=== PATIENT | female | born 1975 | race African-American/Black ===

== ENCOUNTER 2019-08-01 00:21 | Inpatient (IN) ==
--- NOTE | 2019-08-01 00:57 | EKG Report ---
Test Performed on : 08/01/2019 00:43:14 AM Test Reason : sob Blood Pressure : / mmHG Vent. Rate : 114 BPM Atrial Rate : 114 BPM P-R Int : 144 ms QRS Dur : 080 ms QT Int : 330 ms P-R-T Axes : 041 049 015 degrees QTc Int : 454 ms Sinus tachycardia. with frequent premature ventricular complexes. Possible Left atrial enlargement Borderline ECG No previous ECGs available Unconfirmed Result
[2019-08-01 01:12] LABS: BASO# 0.02 X1000 (0.0-0.2); BASO% 0.2 % (0.0-0.8); EOS# 0.18 X1000 (0.0-0.7); EOS% 1.6 % (0.0-10.0); HEMOGLOBIN 11.9 g/dL (12.0-16.0); IMM GRAN# 0.03 X1000 (0.0-0.04); IMM GRAN% 0.3 % (0.0-0.5); LYMPH# 3.36 X1000 (1.2-3.4); LYMPH% 29.2 % (20.5-51.1); MCH 29.8 PG (27-31); MCHC 32.2 g/dL (33-37); MCV 92.5 FL (81-99); MONO# 0.64 X1000 (0.11-0.59); MONO% 5.6 % (1.7-9.3); MPV 12.3 FL (7.4-10.4); NEUT# 7.29 X1000 (1.4-6.5); NEUT% 63.1 % (42.2-75.2); PLT 336 X1000 (130-400); RDW 13.3 % (11.5-14.5); WBC 11.52 X1000 (4.8-10.8)
[2019-08-01 01:19] LABS: AGAP 15; ALBUMIN 4.1 g/dL (3.5-5.0); ALKALINE PHOSPHATASE 72 U/L (32-104); BUN 7 mg/dL (8-22); CALCIUM 9.3 mg/dL (8.8-10.2); CHLORIDE 102 mmol/L (98-107); COSMO 276; CREATININE 0.6 mg/dL (0.5-0.9); ESTIMATED GFR > 60; GLUCOSE 109 mg/dL (70-104); GOT 14 U/L (10-30); GPT 10 U/L (10-36); POTASSIUM 4.1 mmol/L (3.5-5.1); SODIUM 139 mmol/L (136-145); TCO2 22 mmol/L (25-35); TOTAL PROTEIN 6.7 g/dL (6.3-8.3)
[2019-08-01 01:19] LABS: INFLUENZA A NEGATIVE (NEGATIVE); INFLUENZA B NEGATIVE (NEGATIVE)
[2019-08-01 01:41] LABS: URINE SOURCE CLEAN CATCH
[2019-08-01] MEDS ORDERED: LASIX IV ONE (01:42)
[2019-08-01 01:43] LABS: UR EPITHELIAL CELLS <10 /HPF (<10); URINE BACTERIA NEGATIVE /HPF; URINE WBC <10 /HPF (<10)
[2019-08-01 01:53] LABS: UR AMPHETAMINES QUAL NONE DETECTED (NONE DETECT); UR BARBITUATES QUAL NONE DETECTED (NONE DETECT); UR BENZODIAZEPIN QUAL NONE DETECTED (NONE DETECT); UR CANNABINOIDS QUAL NONE DETECTED (NONE DETECT); UR COCAINE QUAL NONE DETECTED (NONE DETECT); UR METHADONE QUAL NONE DETECTED (NONE DETECT); UR METHAMPHETAMINE QUAL NONE DETECTED (NONE DETECT); UR OPIATES QUAL NONE DETECTED (NONE DETECT); UR OXYCODONE QUAL NONE DETECTED (NONE DETECT); UR PCP QUAL NONE DETECTED (NONE DETECT); UR PROPOXYPHENE QUAL NONE DETECTED (NONE DETECT); UR TCA QUAL NONE DETECTED (NONE DETECT)
[2019-08-01 02:10] LABS: BILIRUBIN URINE NEGATIVE (NEGATIVE); BLOOD URINE MODERATE (NEGATIVE); GLUCOSE URINE NEGATIVE (NEGATIVE); KETONE URINE NEGATIVE (NEGATIVE); SP GRAVITY URINE 1.005; TURBIDITY URINE CLEAR (CLEAR)
[2019-08-01 02:11] LABS: LEUKOCYTES URINE NEGATIVE (NEGATIVE); NITRITE URINE NEGATIVE (NEGATIVE); PROTEIN URINE 30 mg/dL (NEGATIVE); UROBILINOGEN URINE NORMAL (NORMAL)
[2019-08-01 02:12] LABS: COLOR YELLOW
[2019-08-01] MEDS ORDERED: TYLENOL PO ONE ×2 (02:52→11:45)
[2019-08-01] MEDS ORDERED: NITROGLYCERIN TOP ONE (02:54)
[2019-08-01] MEDS ORDERED: NITROGLYCERIN ONE (02:58)
[2019-08-01] MEDS ORDERED: TYLENOL ONE (02:58)
--- NOTE | 2019-08-01 08:01 | Diag Imaging Result Doc PS360 ---
EXAM: CT ANGIOGRAM PULMONARY ARTERIES - 08/01/2019 HISTORY: sob, tachy, elevated D-dimer TECHNIQUE: CT angiogram pulmonary arteries with intravenous contrast. Axial, coronal, and 3-D MIP images are obtained. COMPARISON: None. FINDINGS: There are no filling defects identified in the pulmonary arteries. There is no indication of aortic dissection. There are patchy bilateral infiltrates, most prominent at the perihilar and suprahilar regions. There are small bilateral pleural effusions. There is no evidence of pneumothorax. There are mildly prominent mediastinal lymph nodes which are likely reactive. IMPRESSION: No evidence of pulmonary embolism. Patchy bilateral infiltrates, most prominent at the perihilar and suprahilar regions. Small bilateral pleural effusions. These may relate to infection/inflammation or pulmonary edema. The on-call radiologist provided preliminary results at 2:59 AM on 08/01/2019. Electronically signed by Nicho Buitrago 08/01/2019 7:59 AM
--- NOTE | 2019-08-01 08:03 | Diag Imaging Result Doc PS360 ---
EXAM: CHEST-2 VIEWS - 08/01/2019 HISTORY: SOB TECHNIQUE: Chest two views COMPARISON: None. FINDINGS: Heart size appears mildly enlarged. There are bilateral perihilar infiltrates. There is mild thickening of fissures which may relate to small pleural effusions. There is no evidence of pneumothorax. IMPRESSION: Findings which may relate to mild pulmonary edema/congestive heart failure or to perihilar pneumonia. Electronically signed by NichoDatacticsxena 08/01/2019 8:00 AM
[2019-08-01] MEDS ORDERED: NITROGLYCERIN TOP SCH (09:00)
[2019-08-01] MEDS ORDERED: TYLENOL PO PRN (13:01)
[2019-08-01] MEDS ORDERED: ZOFRAN IV PRN (13:01)
[2019-08-01] MEDS: ZITHROMAX PO SCH (13:23)
[2019-08-01] MEDS: ZOSYN 3.375 GM in NS 50 ML IV SCH ×2 (13:23→20:42)
[2019-08-01] MEDS ORDERED: LASIX IV SCH (14:00)
[2019-08-01] MEDS: TRANDATE PO SCH (20:42)
--- NOTE | 2019-08-01 21:14 | ECHO REPORT ---
ORDER DATE: 08/01/2019 INDICATION: Dyspnea, CHF. M-MODE MEASUREMENTS: Left ventricle end diastole: 4.8. Left ventricle end systole: 3.9. Posterior wall: 1.2. Interventricular septum: 1.2. Left atrium: 4.2. Aortic diameter: 3.1. SUMMARY OF 2-DIMENSIONAL IMAGIN. The study is somewhat difficult. The left ventricular chamber appears to be enlarged moderately to significantly. 2. Global left ventricular systolic function is mildly impaired, estimated at 50%. There is a mild degree of concentric LVH. 3. The left atrium is significantly enlarged. 4. The aortic valve looks normal. Color flow mapping indicates trace regurgitation. 5. The mitral valve shows a moderately severe degree of regurgitation. 6. Pulse wave Doppler of mitral inflow shows a pseudonormal pattern with a short deceleration time for the E-wave. The E/A ratio is 1.9. 7. Tissue Doppler of septal and lateral mitral annulus averages 9 cm. The E/e' ratio is greater than 15, suggesting elevation of left atrial pressure. 8. The pulmonic valve shows a mild to moderate degree of regurgitation. 9. The tricuspid valve shows a mild to moderate degree of regurgitation. Pulmonary pressure is estimated at 50 to 55 mmHg. 10.The right-sided chambers do not appear to be significantly enlarged. 11.There is no pericardial effusion, no mass, and no thrombus. This study would be consistent with hypertensive heart disease or chronic kidney disease with elevation of left atrial pressure. Clinical correlation recommended. cc: Dick Velasquez MD
--- NOTE | 2019-08-01 22:14 | HISTORY AND PHYSICAL ---
CHIEF COMPLAINT: Shortness of breath. HISTORY OF PRESENT ILLNESS: Patient is a very pleasant 44-year-old female who unfortunately has an extremely significant history of coronary disease in her family, even at an early age. She presented to the hospital with increased work of breathing, increased shortness of breath, cough, congestion. BNP was elevated at 2535. D-dimer was elevated at 0.92. PAST MEDICAL HISTORY: Significant for hypertension. ALLERGIES: No known drug allergies. MEDICATIONS: Labetalol, although she has been on lisinopril in the past. FAMILY HISTORY: Positive for hypertension and coronary artery disease. SOCIAL HISTORY: The patient does not smoke, drink, or use illicit substances. REVIEW OF SYSTEMS: As noted above. Denies any chest pain, palpitations, shortness of breath prior to this event. Denies any headaches, blurred vision, change in vision. Denies any focalized numbness, tingling, weakness in her extremities. Denies dysuria, frequency, constipation, melena, hematochezia. PHYSICAL EXAMINATION: VITAL SIGNS: Reviewed. Temperature 98 degrees, pulse 72, respiratory rate 22, BP 141/83. GENERAL: Patient is pleasant. She is in no current respiratory distress, although she does note that she has had a tremendous improvement since admission. She still is mildly tachypneic. HEENT: Normocephalic. NECK: Supple. CARDIOVASCULAR: Regular rate. CHEST: Decreased breath sounds, but equal bilaterally. ABDOMEN: Soft, nondistended. EXTREMITIES: Moves all extremities. NEUROLOGIC: No changes. ASSESSMENT: 1. Elevated D-dimer. CTA is negative. 2. Elevated BNP. Echocardiogram pending. 3. Hypertension. Will continue medications and will follow. cc: Floyd Cool MD
[2019-08-02] MEDS: ZOSYN 3.375 GM in NS 50 ML IV SCH ×4 (01:51→20:40)
[2019-08-02 06:13] LABS: AGAP 13; ALBUMIN 3.7 g/dL (3.5-5.0); ALKALINE PHOSPHATASE 60 U/L (32-104); BUN 14 mg/dL (8-22); CALCIUM 8.9 mg/dL (8.8-10.2); CHLORIDE 102 mmol/L (98-107); COSMO 277; CREATININE 0.8 mg/dL (0.5-0.9); ESTIMATED GFR > 60; GLUCOSE 112 mg/dL (70-104); GOT 12 U/L (10-30); GPT 9 U/L (10-36); HEMATOCRIT 35.7 % (37.0-47.0); HEMOGLOBIN 11.2 g/dL (12.0-16.0); MCH 29.4 PG (27-31); MCHC 31.4 g/dL (33-37); MCV 93.7 FL (81-99); MPV 12.3 FL (7.4-10.4); POTASSIUM 3.8 mmol/L (3.5-5.1); RBC 3.81 XMIL (4.2-5.4); RDW 13.4 % (11.5-14.5); SODIUM 138 mmol/L (136-145); TCO2 23 mmol/L (25-35); TOTAL PROTEIN 6.7 g/dL (6.3-8.3); WBC 8.95 X1000 (4.8-10.8)
[2019-08-02] MEDS: KLOR-CON PO SCH (08:09)
[2019-08-02] MEDS: LASIX PO SCH (08:09)
[2019-08-02] MEDS: TRANDATE PO SCH ×2 (08:09→20:40)
[2019-08-02] MEDS: ZITHROMAX PO SCH (08:09)
--- NOTE | 2019-08-02 09:17 | Diag Imaging Result Doc PS360 ---
EXAM: CHEST-2 VIEWS HISTORY: hypoxia TECHNIQUE: PA and Lateral chest x-ray COMPARISON: 08/01/2019 FINDINGS: There is cardiomegaly. Bilateral alveolar infiltrates decreased from prior study. There is persistent mild subpleural edema within the fissures. No significant pleural effusion. No pneumothorax. IMPRESSION: Improving bilateral alveolar infiltrates. Persistent subpleural edema within the fissures. Electronically signed by Bia Canales 08/02/2019 9:15 AM
[2019-08-03] MEDS: ZOSYN 3.375 GM in NS 50 ML IV SCH ×3 (03:15→15:54)
[2019-08-03] MEDS: KLOR-CON PO SCH (09:46)
[2019-08-03] MEDS: LASIX PO SCH (09:46)
[2019-08-03] MEDS: TRANDATE PO SCH ×2 (09:46→20:54)
[2019-08-03] MEDS: ZITHROMAX PO SCH (09:47)
--- NOTE | 2019-08-03 10:27 | CARDIOLOGY CONSULTATION ---
DATE: 08/03/2019 HISTORY OF PRESENT ILLNESS: Ms. Hodan Stein is a 44-year-old, lady who has a history of hypertension for the last 15 years. Comes with complaints of increasing shortness of breath and some cough as well. She is followed up for hypertension by her primary physician in the [place] area. In May, beta-blockers were added. She works in a nursing home. Has not been checking her blood pressure regularly. Denies any chest pain suggestive of angina. She has no palpitations. When she came in, she was significantly short of breath. CT scan was done. It revealed no evidence of pulmonary embolism. There was congestion and pleural effusions noted. She was started on Lasix. Symptomatically, she has improved. Elevated white count was also noted. She is on antibiotics. REVIEW OF SYSTEMS: A 14-point review of systems was done. GI System: There is no history of nausea, vomiting, diarrhea. There is no history of hematemesis or melena. Central Nervous System: No focal weakness to suggest a CVA, TIA. PAST MEDICAL HISTORY: Hypertension. FAMILY HISTORY: Coronary artery disease. SOCIAL HISTORY: She does not smoke. There is no history of alcohol abuse. PHYSICAL EXAMINATION: Vital Signs: Blood pressure was 132/71. When she came into the hospital, her blood pressure was 171/110. First and second heart sounds were heard. There was no S3 gallop. Respiratory System: A few scattered inspiratory crepitations. Abdomen was soft, nontender. There was no guarding or rigidity. Bowel sounds were heard. Central Nervous System: Alert, oriented, was moving all 4 extremities. Examination of extremities revealed no pedal edema. HEENT: Atraumatic, normocephalic. Pupils were equal and reacting to light. DIAGNOSTIC DATA: Echocardiogram revealed concentric left ventricular hypertrophy. Ejection fraction of 50%. Next electrocardiogram revealed normal sinus rhythm. Premature ventricular beats were noted. LABORATORY EXAMINATION: Sodium 139, potassium 4.1, BUN 7, creatinine 0.9. ProBNP elevated at 2535. C-reactive protein abnormal at 38.9. Cardiac enzymes negative. CBC: WBC 11.5, hemoglobin 11.9, hematocrit 37, platelet count of 336,000. ASSESSMENT AND PLAN: 1. Ms. Hodan Stein is a 44-year-old, lady with a history of hypertension, is admitted with heart failure. She has diastolic heart failure. On the current medications of labetalol 100 mg by mouth twice a day, her blood pressures are better. In the past, she was on lisinopril/hydrochlorothiazide. We will discontinue the Lasix as she is euvolemic now and also start her back on KELTON inhibitors with diuretics. 2. We will also set her up to undergo a Cardiolite stress test to assess for and rule out ischemia. Thank you for the consult. We will follow hospital course. cc: Bryson Martinez MD
[2019-08-03] MEDS ORDERED: LEXISCAN ONE (12:55)
[2019-08-03] MEDS ORDERED: AMINOPHYLLINE ONE (13:05)
--- NOTE | 2019-08-03 15:07 | Diag Imaging Result Document ---
PROCEDURE NAME: MYOCARDIAL PERF SCAN, STR/REST - 08/03/2019 SUMMARY: The patient was administered 14.8 mCi of technetium-99m sestamibi, after which resting cardiac images were obtained. The patient was subsequently administered Lexiscan 0.4 mg intravenously, after which the heart rate went from 108 beats per minute to 125 beats per minute, and the blood pressure went from 147/89 to 144/81. With Lexiscan, the patient denied chest discomfort. The patient did have some nausea and emesis following Lexiscan. Following administration of Lexiscan, the patient was administered 39.9 mCi of technetium-99m sestamibi, after which gated stress cardiac images were obtained. The patient was administered aminophylline 125 mg intravenously after administration of radiopharmaceutical. Baseline ECG demonstrated sinus rhythm with frequent ventricular ectopy. With Lexiscan, there were no diagnostic ST-segment changes. SPECT images were reconstructed in the short, horizontal long, and vertical long axis. Review of these images demonstrated a small area of moderately diminished activity in the very apex left ventricle on stress images, which is also seen on resting images. No significant reversibility is evident. Gated images demonstrate a calculated left ventricular ejection fraction of 51% with symmetrical wall motion/thickening. CONCLUSIONS: 1. Adequate response to Lexiscan. 2. Clinically negative for chest pain. 3. Electrocardiographically, there were no diagnostic ST-segment changes on electrocardiogram following the administration of Lexiscan. 4. Lexiscan sestamibi images demonstrate a small region of [id number] diminished activity in the apex, left ventricle, which appears to be fixed and probably due to soft tissue attenuation artifact. There is no convincing scintigraphic evidence of inducible myocardial ischemia. Normal calculated left ventricular ejection fraction of 51%. cc: MD Fina Fonseca PA
--- NOTE | 2019-08-03 15:17 | Diag Imaging Result Doc PS360 ---
US DUPLEX RENAL ARTY/VEIN LMTD - 08/03/2019 INDICATION: HTN TECHNIQUE: COMPARISON: None FINDINGS: The kidneys are normal in echotexture. There is no hydronephrosis or mass. The right kidney measures 9.6 x 5 x 4.8 cm. The left kidney measures 11.1 x 5.3 x 5.5 cm. Renal artery measurements are normal. Segmental renal artery resistive index is 0.63 on the right and 0.59 on the left. Renal artery ratios are 2.29 on the right and 1.63 on the left. IMPRESSION: Negative exam. Electronically signed by Brett Stern 08/03/2019 3:15 PM
[2019-08-03] MEDS: PRINIVIL PO SCH (15:54)
--- NOTE | 2019-08-03 18:14 | PROGRESS NOTE ---
DATE: 08/03/2019 SUBJECTIVE: No acute events overnight. She underwent stress test, which was largely unremarkable. She is feeling slightly better though at lying down position. She still feels a little short of breath. OBJECTIVE: Vital Signs: Temperature 97.9 degrees, pulse 109, respiratory 16, blood pressure 148/72 and saturating 98% on room air. General: Not in acute distress. HEENT: Oral cavity is moist. Lungs: Air entry bilaterally equal. No wheeze, rhonchi, or crackles. Cardiovascular: S1, S2 normal. No murmur or gallop. Abdomen: Soft and nontender. Extremities: No evidence of edema. Neurologic: She is alert and oriented x3. She has mild crackles in infrascapular region. LABORATORY: No labs today. Family at bedside. ASSESSMENT AND PLAN: 1. Orthopnea and shortness of breath on presentation with bilateral infiltrate. Differential includes pneumonia, acute congestive heart failure with preserved ejection fraction, mitral regurgitation, though her left ventricular function was not impaired. She diuresed well with Lasix. I will continue to address underlying problems. 2. Suspected bilateral pneumonia. Change antibiotics to oral cefuroxime and azithromycin. 3. Essential hypertension, presumed heart failure with preserved ejection fraction. Appreciate Cardiology recommendation. I will continue her on her home hydrochlorothiazide, labetalol, and lisinopril. DISPOSITION: Monitor patient inside the hospital for another 24 hours. Plan of care discussed with the patient. Her questions have been answered. If there are no further cardiovascular recommendations, I would anticipate discharge in next 24 hours. cc: Dwight Hameed MD MTDD
[2019-08-03] MEDS: CEFTIN PO SCH (20:54)
[2019-08-04 07:44] LABS: BASO# 0.02 X1000 (0.0-0.2); BASO% 0.2 % (0.0-0.8); EOS# 0.14 X1000 (0.0-0.7); EOS% 1.7 % (0.0-10.0); HEMATOCRIT 34.3 % (37.0-47.0); HEMOGLOBIN 10.8 g/dL (12.0-16.0); IMM GRAN# 0.02 X1000 (0.0-0.04); IMM GRAN% 0.2 % (0.0-0.5); LYMPH# 2.88 X1000 (1.2-3.4); LYMPH% 35.4 % (20.5-51.1); MCH 29.6 PG (27-31); MCHC 31.5 g/dL (33-37); MONO# 0.45 X1000 (0.11-0.59); MONO% 5.5 % (1.7-9.3); MPV 12.4 FL (7.4-10.4); NEUT# 4.63 X1000 (1.4-6.5); PLT 263 X1000 (130-400); RBC 3.65 XMIL (4.2-5.4); RDW 13.4 % (11.5-14.5); WBC 8.14 X1000 (4.8-10.8)
[2019-08-04 08:05] LABS: AGAP 12; BUN 10 mg/dL (8-22); CHLORIDE 103 mmol/L (98-107); COSMO 276; CREATININE 0.8 mg/dL (0.5-0.9); ESTIMATED GFR > 60; GLUCOSE 94 mg/dL (70-104); SODIUM 139 mmol/L (136-145); TCO2 24 mmol/L (25-35)
[2019-08-04] MEDS ORDERED: HYDROCHLOROTHIAZIDE PO SCH (09:00)
[2019-08-04] MEDS: PRINIVIL PO SCH (09:22)
[2019-08-04] MEDS: CEFTIN PO SCH (09:22)
[2019-08-04] MEDS: KLOR-CON PO SCH (09:22)
[2019-08-04] MEDS: TRANDATE PO SCH (09:22)
[2019-08-04] MEDS: ZITHROMAX PO SCH (09:22)
--- NOTE | 2019-08-04 10:31 | PROGRESS NOTE ---
DATE: 08/04/2019 SUBJECTIVE: Ms. Stein was admitted on 08/01/2019, presented with shortness of breath. She has no primary care physician. She recently moved from [place] to here. She is a 44-year-old female who unfortunately has extremely significant history of coronary artery disease in her family, even at an early age. She presented to the hospital with increased work of breathing, shortness of breath, cough, congestion. BNP was elevated at 2535. D-dimer was elevated at 0.92. Her only significant history of hypertension. CTA was negative. She feels good and she has not had any further chest pain by her report. OBJECTIVE: Vital Signs: Temperature 98.2 degrees, pulse 60, respirations 16, blood pressure 151/81. Eyes: Pupils are equal and round. Lungs: Clear in all lung tucker. Cardiovascular: Regular rhythm and rate without murmur or S3. DATA: Urine output was about 1300 mL. Aortic and renal arteriogram was a negative exam. No hydronephrosis. Kidney measurements look good. ASSESSMENT AND PLAN: 1. Orthopnea and shortness of breath on presentation with bilateral infiltrates. Differential includes pneumonia, congestive heart failure, preserved ejection fraction, mitral regurgitation though her left ventricular function was not impaired. She has diuresed well with Lasix. 2. Suspect bilateral pneumonia. Change her antibiotics to cefuroxime and azithromycin. 3. Essential hypertension. Blood pressures have been followed. We will see what Cardiology wants to do. She may get to go home today. She appears to have some diastolic heart failure. CURRENT MEDICATIONS: Labetalol 100 mg twice a day and her blood pressures are better. She was on lisinopril/hydrochlorothiazide and I think we want to start her back on her KELTON inhibitors and with diuretic. She is set up to undergo a Cardiolite stress test. cc: Britton Ashford MD
[2019-08-04 11:32] VITALS: BP 114/75
--- NOTE | 2019-08-04 12:54 | DISCHARGE SUMMARY ---
ADMISSION DATE: 08/01/2019 DISCHARGE DATE: 08/04/2019 PRIMARY CARE PHYSICIAN: She has no primary care. REASON FOR ADMISSION: She presented with shortness of breath on 08/01/2019. HISTORY AND HOSPITAL COURSE: A 44-year-old female has had extremely significant history of coronary artery disease in her family, even at an early age. She presented to the hospital with increased work of breathing, increased shortness of breath, cough and congestion. BNP was elevated at 2535. D-dimer was elevated at 0.92. History significant for hypertension. She has no known drug allergies. Family history strongly positive for coronary artery disease, so she was admitted with elevated D-dimer. CT angiogram was negative. She had a mildly elevated BNP. Echocardiogram was performed and echocardiogram done on 08/01/2019, study was somewhat difficult. Left ventricular chamber appears to be enlarged, moderately to significant. Global left ventricular systolic function mildly impaired, estimated at 50%. There is a mild degree of concentric left ventricular hypertrophy. The left atrium significantly enlarged. The aorta looks normal. Color-flow mapping indicates trace regurgitation. Mitral valve shows moderate to severe degree of regurgitation. Her pulse-wave Doppler of the mitral valve inflow showed a pseudo-normal pattern with a short deceleration time in the E-wave, E-A ratio was 1.9. Her E-A ratio was greater than 15 suggestive of elevation of left atrial pressure. The pulmonic valve shows mild to moderate degree of regurgitation. Tricuspid valve shows mild to moderate degree of regurgitation. Pulmonary pressure was estimated at 50 to 55 mmHg. Right-sided chambers do not appear to be significantly enlarged and there is no pericardial effusion. Cardiology was asked to see. Note her pulmonary arteriogram, there is no evidence of pulmonary embolism, and Cardiology performed a myocardial perfusion scan, adequate response to Lexiscan, clinically negative for chest pain. EKG, there were no diagnostic ST-segment changes in the EKG, and the Lexiscan sestamibi images demonstrated a small region of mild to moderate diminished activity in the apex of the left ventricle, which appears to be fixed, probably due to soft tissue attenuation. No convincing scintigraphic evidence of inducible myocardial ischemia. Normal calculated left ventricular ejection fraction at 51%. Medications were adjusted and she was doing well. No chest pain. No shortness of breath. Last several blood pressures 132/71, 158/72, 151/81, 114/75. Exam today, no distended neck veins, no pedal edema. Lungs are clear in all lung tucker. Cardiovascular exam, regular rhythm and rate without murmur or S3. So felt she could go home. DISCHARGE MEDICATIONS: She is on Trandate 100 mg p.o. b.i.d., Prinivil 20 mg daily, and hydrochlorothiazide 25 mg a day. She will get Klor-Con 20 mEq daily and follow up with Cardiology in a couple weeks. Note, she was put empirically on some antibiotics but did not see any evidence of infection. There was suspicion for possible bilateral pneumonia; however, this appears to be pulmonary venous hypertension and some atelectasis. She remained afebrile and her white count was within normal limits. cc: Britton Ashford MD
== END 2019-08-04 15:10 | disposition home or self-care (01) | DRG 291 ==
LOC: P.ED 00:21 → SUATTDRO 03:47 → P.MEDSURG 03:47 → 4N 08-02 21:18
PROVIDERS: ATTEND Emergency Medicine